=== PATIENT | female | born 1950 ===

== ENCOUNTER 2020-08-31 13:26 | Emergency (ER) | payer MEDICARE ==
[2020-08-31] MEDS ORDERED: Bupivacaine PF 0.5% 30 ML VIAL ONE (14:33)
[2020-08-31] MEDS ORDERED: HYDROcodone/Acetaminophen 5/325 mg Tablet ONE (14:34)
[2020-08-31] MEDS ORDERED: Boostrix 0.5 ML (Tdap) VIAL ONE (14:35)
[2020-08-31] MEDS ORDERED: Lidocaine 2% PF 100 mg/5 ml Syringe ONE (14:35)
[2020-08-31] MEDS ORDERED: Lidocaine 2% PF 5 ML VIAL ONE (14:36)
== END 2020-08-31 16:36 | disposition home or self-care (01) ==
LOC: CSHERS 13:26
DX: S62.604A Fracture of unspecified phalanx of right ring finger, initial encounter for closed fracture (principal); Z23 Encounter for immunization; J45.909 Unspecified asthma, uncomplicated; W55.12XA Struck by horse, initial encounter
CPT/HCPCS: 12001; 90471; 90715; J2001; S0020